=== PATIENT | male | born 1985 | race Caucasian/White ===

== ENCOUNTER 2023-05-04 20:01 | Emergency (ER) | payer BC, SELFPAY ==
[2023-05-04] VITALS (9 sets, daily range): BP systolic 132–190; BP diastolic 76–92; PULSE 74–100; RESP 14–21; TEMP 36.5; O2SAT 95–98
--- NOTE | ~2023-05-04 | XR_ITS ---
EXAMINATION: XR chest 2V Exam Date/Time: 05/04/2023 20:35 [employer]SEM[employer]ER HISTORY: cp Comparison: None. RESULT: Lines, tubes, and devices: None. Lungs and pleura: Mild diffuse reticulonodular opacities with cuffing. No focal consolidation, pleur al effusion, or pneumothorax. Cardiomediastinal silhouette: Normal. Other: No acute osseous or upper abdominal finding. IMPRESSION: Pulmonary opacities may represent respiratory bronchiolitis in the appropriate clinical context. Reviewed, dictated and finalized at location K. 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
--- NOTE | 2023-05-04 20:02 | ECG_ITS ---
Measurements Intervals [place] Rate: 105 P: 30 AK: 132 QRS: 10 QRSD: 94 T: -4 QT: 328 QTc: 435 Interpretive Statements SINUS TACHYCARDIA NONSPECIFIC ST & T-WAVE ABNORMALITY ABNORMAL ECG NO PREVIOUS ECG AVAILABLE FOR COMPARISON Electronically Signed On 05-05-2023 13:54:59 [employer]INNING [employer] W[employer]ING SUPERVISOR by Ryne Henry M.D.
[2023-05-04 20:21] LABS: Basophils Absolute Auto 0.1 K/mm3 (0.0-0.1); Basophils Percent Auto 1.2 % (0.2-1.2); Eosinophils Absolute Auto 0.6 K/mm3 (0-0.3); Eosinophils Percent Auto 6.4 % (0-4.4); Hemoglobin 15.9 g/dL (14.0-18.0); Immature Granulocyte Absolute 0.03 K/mm3 (0.00-0.031); Immature Granulocyte Percent A 0.3 % (0-0.5); Lymphocytes Absolute Auto 3.82 K/mm3 (0.9-3.2); Lymphocytes Percent Auto 39.7 % (18.3-44.2); Mean Corpuscular HGB Conc 32.4 g/dl (32-36); Mean Corpuscular Hemoglobin 29.1 pg (26-34); Mean Corpuscular Volume 89.7 fl (80-100); Mean Platelet Volume 10.6 fl (7.4-10.4); Monocytes Absolute Auto 0.8 K/mm3 (0.1-0.6); Monocytes Percent Auto 7.9 % (2.6-8.5); Neutrophils Absolute Auto 4.3 K/mm3 (1.3-6.7); Neutrophils Percent Auto 44.5 % (45.5-73.1); Platelet Count Result 205 k/mm3 (150-375); Red Blood Count 5.46 M/mm3 (4.6-6.20); Red Cell Distribution Width 13.2 % (11.5-14.5); White Blood Count 9.6 K/mm3 (4.5-10.0)
[2023-05-04 20:34] LABS: Alanine Aminotransferase 62 U/L (6-50); Albumin Level 4.6 g/dL (3.5-5.1); Alkaline Phosphatase 63 U/L (38-126); Anion Gap 6 mmol/L (8-16); Aspartate Amino Transferase 40 U/L (17-59); Bilirubin,Total 0.5 mg/dL (0.2-1.3); Blood Urea Nitrogen 19 mg/dL (9-20); Calcium 9.3 mg/dL (8.4-10.2); Carbon Dioxide 29 mmol/L (22-30); Chloride 107 mmol/L (98-107); Estimated CRCL calculation 152 ml/min; Estimated Glomerular Filt Rate > 60; Glucose 88 mg/dL (65-110); Lipase 119 U/L (23-300); Potassium 3.9 mmol/L (3.4-5.0); Sodium 142 mmol/L (137-145)
[2023-05-04 20:35] LABS: INR 0.9; Partial Thromboplastin Time 23.9 SECONDS (22.3-36.8); Prothrombin Time 12.5 Seconds (11.1-14.7)
[2023-05-04 20:45] LABS: Troponin I < 0.012 ng/mL (0.000-0.034)
[2023-05-04] MEDS: ASPIRIN 81 MG CHEWABLE TABLET 324 MG PO (22:36)
--- NOTE | 2023-05-04 23:26 | ECG_ITS ---
Measurements Intervals [place] Rate: 74 P: 37 AR: 136 QRS: 18 QRSD: 96 T: 13 QT: 359 QTc: 400 Interpretive Statements SINUS RHYTHM WITH SINUS ARRHYTHMIA NONSPECIFIC T-WAVE ABNORMALITY ABNORMAL ECG COMPARED TO ECG 05/04/2023 20:07:34 SINUS RHYTHM NOW PRESENT SINUS ARRHYTHMIA NOW PRESENT Electronically Signed On 05-05-2023 13:59:11 MANAGING EDITOR by Ryne Henry M.D.
[2023-05-04 23:34] LABS: Troponin I < 0.012 ng/mL (0.000-0.034)
[2023-05-05 00:03] LABS: Magnesium 2.4 mg/dL (1.6-2.3)
[2023-05-05 00:13] VITALS: PULSE 70; RESP 14; O2SAT 100
[2023-05-05 00:15] VITALS: PULSE 69; RESP 17; O2SAT 95
[2023-05-05 00:16] VITALS: BP 128/75; PULSE 73; RESP 13; O2SAT 99
--- NOTE | 2023-05-05 00:26 | ED.GENADULT ---
HPI - General Adult General Chief complaint: Chest Pain Stated complaint: cp Time Seen by Provider: 05/04/23 22:25 History of Present Illness HPI narrative: patient 37-year-old gentleman who presents emerged from with chief complaint of chest pain. Patient reports this evening he had a sudden episode of pressure in his chest and then started having some palpitations patient reports the episodes reveals heart intensity he did feel somewhat lightheaded with this episode happened patient had no syncope with it patient does report that he consumes a large number of energy drinks between 3 and 6 per day Related Data Allergies Allergy/AdvReac Type Severity Reaction Status Date / Time No Known Allergies Allergy Mild Verified 05/04/23 20:07 Review of Systems Review of Systems: A 10 system review of systems was completed on the patient and is negative except for what is stated in the HPI. Nursing and ancillary documentation was reviewed. Exam Narrative: GENERAL: Well-appearing, well-nourished, and in no acute distress. HEAD: Normocephalic, atraumatic. EYES: PERRLA and EOMI. ENT: Nares clear, no rhinorrhea or epistaxis. Mucous membranes moist. NECK: Supple. CHEST: Clear to auscultation. No respiratory distress. HEART: Regular rate and rhythm. No murmur heard. Normal peripheral pulses. ABDOMEN: Soft, nontender, nondistended, normal active bowel sounds. EXTREMITIES: Normal range of motion. No edema. SKIN: Warm, dry, no rash. NEURO: No focal deficits. Alert and oriented x3. PSYCH: Normal mood and affect. Course Vital Signs Vital signs: Vital Signs Temperature 36.5 C 05/04/23 20:05 Pulse Rate 100 05/04/23 20:05 Respiratory Rate 15 05/04/23 20:05 Blood Pressure 190/92 H 05/04/23 20:05 Pulse Oximetry 98 05/04/23 20:05 Oxygen Delivery Room Air 05/04/23 20:05 Temperature 36.5 C 05/04/23 20:05 Pulse Rate 100 05/04/23 20:05 Respiratory Rate 15 05/04/23 20:05 Blood Pressure 190/92 H 05/04/23 20:05 Pulse Oximetry 98 05/04/23 20:05 Oxygen Delivery Room Air 05/04/23 20:05 Medical Decision Making [facility] Narrative Medical decision making narrative: differential diagnosis includes dysrhythmia, ACS, electrolyte abnormality, laboratory studies were obtained which showed a normal CBC normal CMP magnesium was 2.4 troponin was less than 0.012 for both 0 hour and 3 hour chest x-ray showed a viral pattern EKG showed no acute ischemic changes Vital Signs Vital Signs: Vital Signs Temperature 36.5 C 05/04/23 20:05 Pulse Rate 100 05/04/23 20:05 Respiratory Rate 15 05/04/23 20:05 Blood Pressure 190/92 H 05/04/23 20:05 Pulse Oximetry 98 05/04/23 20:05 Oxygen Delivery Room Air 05/04/23 20:05 Temperature 36.5 C 05/04/23 20:05 Pulse Rate 100 05/04/23 20:05 Respiratory Rate 15 05/04/23 20:05 Blood Pressure 190/92 H 05/04/23 20:05 Pulse Oximetry 98 05/04/23 20:05 Oxygen Delivery Room Air 05/04/23 20:05 Lab Data 05/04/23 20:12 05/04/23 20:12 Labs: Lab Results 05/04/23 05/04/23 Range/Units 20:12 23:07 WBC 9.6 (4.5-10.0) K/mm3 RBC 5.46 (4.6-6.20) M/mm3 Hgb 15.9 (14.0-18.0) g/dL Hct 49.0 (42.0-52.0) % MCV 89.7 (80-100) fl MCH 29.1 (26-34) pg MCHC 32.4 (32-36) g/dl RDW 13.2 (11.5-14.5) % Plt Count 205 (150-375) k/mm3 MPV 10.6 H (7.4-10.4) fl Immature Gran % (Auto) 0.3 (0-0.5) % Neut % (Auto) 44.5 L (45.5-73.1) % Lymph % (Auto) 39.7 (18.3-44.2) % Johnston % (Auto) 7.9 (2.6-8.5) % Eos % (Auto) 6.4 H (0-4.4) % Baso % (Auto) 1.2 (0.2-1.2) % Lymph # (Auto) 3.82 H (0.9-3.2) K/mm3 Johnston # (Auto) 0.8 H (0.1-0.6) K/mm3 Eos # (Auto) 0.6 H (0-0.3) K/mm3 Baso # (Auto) 0.1 (0.0-0.1) K/mm3 Abs Immat Gran (auto) 0.03 (0.00-0.031) K/mm3 Absolute Neuts (auto) 4.3 (1.3-6.7) K/mm3 Absolute Nucleated RBC 0.0 (0.0-0.012) K/mm3 Nucleat
[2023-05-05 00:31] VITALS: BP 123/61; PULSE 69; RESP 15; O2SAT 99
[2023-05-05 00:32] VITALS: PULSE 77; RESP 19; O2SAT 94
[2023-05-05 00:45] VITALS: PULSE 78; RESP 18; O2SAT 95
== END 2023-05-05 00:55 | disposition home or self-care (01) ==
PROVIDERS: Emergency Provider Emergency Medicine
DX: R07.89 Other chest pain (principal); R00.2 Palpitations; R00.0 Tachycardia, unspecified; R94.31 Abnormal electrocardiogram [ECG] [EKG]
CPT/HCPCS: 36415; 71046; 80053; 83690; 83735; 84484; 85025; 85610; 85730; 93005; 99284; A9270